=== PATIENT | female | born 1970 | race American Indian/Alaskan Native ===

== ENCOUNTER 2017-07-30 19:48 | Emergency (ER) | payer MEDICAID ==
[2017-07-30 20:26] VITALS: TEMP 97.9; O2SAT 98
--- NOTE | 2017-07-30 20:45 | C.PDOC ---
History Of Present Illness 47 year old female presents to the ED for evaluation of right lower quadrant abdominal pain which has been progressively worsening since onset 4 days ago. Patient states she had intercourse with her four days ago, after which she began experiencing discomfort to her right lower quadrant region. She notes the pain is exacerbated by moving and walking. Patient states her pain intensified today; it radiates to her back and she is unable to walk up a flight of steps without feeling pain. She denies fever, chills, nausea, vomiting , vaginal bleeding/discharge, changes in urinary/bowel habits. Patient has not taken anything for the pain and denies experiencing similar symptoms in the past. Time Seen by Provider: 07/30/17 20:00 Chief Complaint (Nursing): Abdominal Pain History Per: Patient History/Exam Limitations: no limitations Onset/Duration Of Symptoms: Days (4) Current Symptoms Are (Timing): Worse Location Of Pain/Discomfort: RLQ Radiation Of Pain To:: None Quality Of Discomfort: "Pain" Associated Symptoms: denies: Fever, Chills, Nausea, Vomiting, Diarrhea, Constipation, Urinary Symptoms Additional History Per: Patient Abnormal Vaginal Bleeding: No Last Menstral Period: 07/21/2017 Past Medical History Reviewed: Historical Data, Nursing Documentation, Vital Signs Vital Signs: Last Vital Signs Temp 97.9 F 07/30/17 20:05 Pulse 74 07/30/17 20:05 Resp 20 07/30/17 20:05 BP 175/104 H 07/30/17 20:05 Pulse Ox 98 07/30/17 23:10 - Medical History PMH: Asthma, HTN Surgical History: No Surg Hx - [facility] Procedures CERVICAL LES DESTRUC NEC (05/17/97) D & C NEC (05/17/97) MONITORING NOS (04/10/98) MANUAL ASSIST DELIV NEC (04/10/98) Family History: States: Unknown Family Hx - Social History Hx Alcohol Use: No Hx Substance Use: No - Immunization History Hx Tetanus Toxoid Vaccination: No Hx Influenza Vaccination: No Hx Pneumococcal Vaccination: No Review Of Systems Constitutional: Negative for: Fever, Chills Gastrointestinal: Positive for: Abdominal Pain (right lower quadrant ). Negative for: Nausea, Vomiting, Diarrhea, Constipation Genitourinary: Negative for: Dysuria, Hematuria, Vaginal Discharge, Vaginal Bleeding Physical Exam - Physical Exam Appears: Non-toxic, No Acute Distress, Other (hunched over when asked to stand ) Skin: Warm, Dry Head: Normacephalic Eye(s): bilateral: Normal Inspection Oral Mucosa: Moist Neck: Supple Chest: Symmetrical, No Deformity, No Tenderness Cardiovascular: Rhythm Regular, No Murmur Respiratory: No Rales, No Rhonchi, No Wheezing Gastrointestinal/Abdominal: Soft, Tenderness (to right lower quadrant ), Guarding, No Rebound Extremity: Normal ROM, Capillary Refill (less than 2 seconds ) Neurological/Psych: Oriented x3, Normal Speech, Normal Cognition ED Course And Treatment - Laboratory Results Result Diagrams: 07/30/17 20:46 07/30/17 20:46 Lab Interpretation: Normal O2 Sat by Pulse Oximetry: 98 (on RA ) Pulse Ox Interpretation: Normal - CT Scan/US US Pelvis Other Rad Studies (CT/US): Read By Radiologist, Radiology Report Reviewed CT/US Interpretation: EXAM: US Pelvis Complete, Transabdominal. CLINICAL HISTORY: 47 years old, female; Pain; Pelvic pain; Additional info: Abd pain. TECHNIQUE: Real-time transabdominal pelvic ultrasound (complete) with image documentation. COMPARISON: No relevant prior studies available. Findings: The uterus measures 10 x 5 x 6 cm and is normal. The endometrium measures 11 mm. There is a 1.3 cm small cyst/dominant follicle in the right ovary. The left ovary is normal. Flow is demonstrated to both ovaries. No free fluid. Impression: Small cyst/dominant follicle right ovary. Progress Note: Bloodwork and Pelvic US ordered and reviewed. Toradol IVP administered. Reevaluation Time: 23:11 Reassessment Condition: Improved Disposition Counseled Patient/Family Regarding: Studies Performed, Diagnosis, Need For Followup, Rx Given - Disposition Referrals: Meme Bello DO [Staff Provider] - Disposition: HOME/ ROUTINE Disposition Time: 23:11 Condition: IMPROVED Prescriptions: Naproxen [Naprosyn] 1 tab PO BID PRN #25 tab PRN Reason: Pain Instructions: Ovarian Cyst (DC) Forms: [employer] [place] [employer] (Welsh) - Clinical Impression Clinical Impression: Ovarian cyst - Scribe Statement The provider has reviewed the documentation as recorded by the Scribe (Madeline Triplett) Provider Attestation: All medical record entries made by the Scribe were at my direction and personally dictated by me. I have reviewed the chart and agree that the record accurately reflects my personal performance of the history, physical exam, medical decision making, and the department course for this patient. I have also personally directed, reviewed, and agree with the discharge instructions and disposition.
[2017-07-30 20:51] LABS: BASO # 0.1 K/uL (0.0-0.2); EOS # 0.3 K/uL (0.0-0.7); EOS % 4.9 % (0.0-4.0); HEMOGLOBIN 11.6 g/dL (11.0-16.0); LYMPH % 36.4 % (20.0-40.0); MEAN CELL VOLUME 92.4 fL (81.0-99.0); MEAN CORPUSCULAR HEMOGLOBIN 30.9 pg (27.0-31.0); MEAN CORPUSCULAR HGB CONC 33.4 g/dL (33.0-37.0); MONO # 0.5 K/uL (0.0-0.8); NEUT # 2.6 K/uL (1.8-7.0); NEUT % 47.7 % (50.0-75.0); NRBC % 0.1 % (0.0-2.0); RBC 3.75 Mil/uL (3.80-5.20); RED CELL DISTRIBUTION WIDTH 13.3 % (11.5-14.5); WHITE BLOOD COUNT 5.5 K/uL (4.8-10.8)
[2017-07-30 20:57] LABS: HCG,QUALITATIVE URINE NEGATIVE (NEGATIVE)
[2017-07-30 20:59] LABS: URINE BILIRUBIN NEGATIVE (NEGATIVE); URINE CLARITY Hazy (Clear); URINE COLOR Yellow (YELLOW); URINE GLUCOSE (UA) NORMAL (Normal)
[2017-07-30 21:00] LABS: SQUAMOUS EPITHIAL 16 /hpf (0-5); URINE BLOOD 1+ (NEGATIVE); URINE LEUKOCYTE ESTERASE TRACE Leu/uL (Negative); URINE PROTEIN NEGATIVE (NEGATIVE); URINE UROBILINOGEN NORMAL mg/dL (0.2-1.0)
[2017-07-30 21:04] LABS: ALB/GLOB RATIO 1.1 (1.0-2.1); ALBUMIN 4.1 g/dL (3.5-5.0); ALT/SGPT 23 U/L (9-52); AST/SGOT 22 U/L (14-36); BLOOD UREA NITROGEN 9 mg/dL (7-17); CALCIUM 9.1 mg/dl (8.6-10.4); GFR AFRICAN-AMERICAN > 60; GFR NON-AFRICAN AMERICAN > 60
--- NOTE | 2017-07-30 23:04 | US ---
EXAM: US Pelvis Complete, Transabdominal CLINICAL HISTORY: 47 years old, female; Pain; Pelvic pain; Additional info: Abd pain TECHNIQUE: Real-time transabdominal pelvic ultrasound (complete) with image documentation. COMPARISON: No relevant prior studies available. EXAM: US Pelvis, Transvaginal EXAM DATE/TIME: 07/30/2017 8:28 PM CLINICAL HISTORY: 47 years old, female; Pain; Pelvic pain; Additional info: Abd pain TECHNIQUE: Real-time transvaginal pelvic ultrasound (complete) with image documentation. Transvaginal imaging was used for better evaluation of the endometrium and adnexa. COMPARISON: No relevant prior studies available. FINDINGS: The uterus measures 10 x 5 x 6 cm and is normal. The endometrium measures 11 mm. The right ovary measures 3 x 2 x 2.5 cm. The left ovary measures 2 x 2 x 2 cm. There is a 1.3 cm small cyst/dominant follicle in the right ovary. The left ovary is normal. Color flow and doppler vascular waveforms were demonstrated to both ovaries. There is no significant free fluid. IMPRESSION: Small cyst/dominant follicle in the right ovary.
[2017-07-30 23:59] VITALS: BP 116/78; PULSE 88; RESP 18
== END 2017-07-30 22:55 | disposition home or self-care (01) ==
LOC: C.ER 19:48
DX: N83.201 Unspecified ovarian cyst, right side (principal)

== ENCOUNTER 2017-12-24 11:47 | Emergency (ER) | payer MEDICAID ==
[2017-12-24 12:01] VITALS: O2SAT 100
[2017-12-24 13:01] LABS: BASO # 0.1 K/uL (0.0-0.2); EOS # 0.2 K/uL (0.0-0.7); EOS % 4.5 % (0.0-4.0); HEMOGLOBIN 12.3 g/dL (11.0-16.0); LYMPH # 1.3 K/uL (1.0-4.3); LYMPH % 24.8 % (20.0-40.0); MEAN CORPUSCULAR HEMOGLOBIN 29.8 pg (27.0-31.0); MEAN CORPUSCULAR HGB CONC 33.1 g/dL (33.0-37.0); MEAN PLATELET VOLUME 11.2 fL (7.2-11.7); MONO # 0.4 K/uL (0.0-0.8); NEUT # 3.2 K/uL (1.8-7.0); NEUT % 61.7 % (50.0-75.0); NRBC % 0.1 % (0.0-2.0); RBC 4.11 Mil/uL (3.80-5.20); RED CELL DISTRIBUTION WIDTH 13.7 % (11.5-14.5); WHITE BLOOD COUNT 5.2 K/uL (4.8-10.8)
[2017-12-24 13:06] LABS: ALB/GLOB RATIO 1.3 (1.0-2.1); ALBUMIN 4.2 g/dL (3.5-5.0); ALT/SGPT 22 U/L (9-52); AST/SGOT 24 U/L (14-36); BLOOD UREA NITROGEN 8 mg/dL (7-17); CALCIUM 8.8 mg/dl (8.6-10.4); GFR NON-AFRICAN AMERICAN > 60
[2017-12-24 13:07] LABS: MEAN CELL VOLUME 90.1 fL (81.0-99.0)
--- NOTE | 2017-12-24 13:12 | RAD ---
HISTORY: chest pain COMPARISON: None available. TECHNIQUE: Chest, one view. FINDINGS: LUNGS: No focal consolidation. Tiny probable calcified granulomas. Please note that chest x-ray has limited sensitivity for the detection of pulmonary masses. PLEURA: No significant pleural effusion identified. No definite pneumothorax . CARDIOVASCULAR: The cardiomediastinal silhouette appears within normal limits of size. OSSEOUS STRUCTURES: No acute osseous abnormality identified. VISUALIZED UPPER ABDOMEN: Unremarkable. OTHER FINDINGS: None. IMPRESSION: No focal consolidation, significant pleural effusion, or definite pneumothorax identified. Tiny probable calcified granulomas.
[2017-12-24 14:04] VITALS: BP 159/80; PULSE 62; RESP 16; TEMP 98.2
--- NOTE | 2017-12-24 16:29 | C.PDOC ---
History Of Present Illness 47-year-old female, PMHx includes Asthma and Hypertension (compliant with meds), comes in complaining of sharp chest pain ongoing for the past 4 days. Pain is worse with movement. Patient denies any shortness of breath, fever, chills, cough, or any other associated symptoms. No other complaints at this time Chief Complaint (Nursing): Chest Pain History Per: Patient History/Exam Limitations: no limitations Past Medical History Reviewed: Historical Data, Nursing Documentation, Vital Signs Vital Signs: Last Vital Signs Temp 98.2 F 12/24/17 14:02 Pulse 62 12/24/17 14:02 Resp 16 12/24/17 14:02 BP 159/80 H 12/24/17 14:02 Pulse Ox 100 12/24/17 14:02 - Medical History PMH: Asthma, HTN - [facility] Procedures CERVICAL LES DESTRUC NEC (05/17/97) D & C NEC (05/17/97) MONITORING NOS (04/10/98) MANUAL ASSIST DELIV NEC (04/10/98) Family History: States: No Known Family Hx - Social History Hx Alcohol Use: No Hx Substance Use: No - Immunization History Hx Tetanus Toxoid Vaccination: No Hx Influenza Vaccination: No Hx Pneumococcal Vaccination: No Review Of Systems Constitutional: Negative for: Fever Cardiovascular: Positive for: Chest Pain Gastrointestinal: Negative for: Nausea, Vomiting Skin: Negative for: Rash Neurological: Negative for: Weakness, Numbness Physical Exam - Physical Exam Appears: Non-toxic, No Acute Distress Skin: Warm, Dry, No Rash Head: Atraumatic, Normacephalic Eye(s): bilateral: Normal Inspection Nose: Normal Oral Mucosa: Moist Lips: Normal Appearing Neck: Normal ROM Chest: Symmetrical Cardiovascular: Rhythm Regular, No Murmur Respiratory: Normal Breath Sounds, No Accessory Muscle Use Extremity: Normal ROM, No Deformity Neurological/Psych: Oriented x3, Normal Speech ED Course And Treatment - Laboratory Results Result Diagrams: 12/24/17 12:51 12/24/17 12:51 ECG: Interpreted By Me, Viewed By Me ECG Rhythm: Sinus Rhythm ECG Interpretation: No Acute Changes Rate From EC O2 Sat by Pulse Oximetry: 100 Pulse Ox Interpretation: Normal (RA) Disposition - Disposition Referrals: Yanni Grewal, [Non-Staff] - Disposition: HOME/ ROUTINE Disposition Time: 13:40 Condition: GOOD Additional Instructions: JOSS BUSCH, thank you for letting us take care of you today. The emergency medical care you received today was directed at your acute symptoms. If you were prescribed any medication, please fill it and take as directed. It may take several days for your symptoms to resolve. Return to the Emergency Department if your symptoms worsen, do not improve, or if you have any other problems. Please contact your doctor or call one of the physicians/clinics you have been referred to that are listed on the Patient Visit Information form that is incl uded in your discharge packet. Bring any paperwork you were given at discharge with you along with any medications you are taking to your follow up visit. Our treatment cannot replace ongoing medical care by a primary care provider outside of the emergency department. Thank you for allowing the [facility] team to be part of your care today. Follow up with your primary care doctor in 2-3 days for re-evaluation and further management. Prescriptions: Ibuprofen [Motrin] 600 mg PO Q6 PRN #20 tab PRN Reason: Pain, Moderate (4-7) Instructions: Muscle and Bone Pain (DC) Forms: [employer] (Kazakh) - Clinical Impression Clinical Impression: Non-cardiac chest pain - Scribe Statement The provider has reviewed the documentation as recorded by the Scribe (Eris Paredes) Provider Attestation: All medical record entries made by the Scribe were at my direction and personally dictated by me. I have reviewed the chart and agree that the record accurately reflects my personal performance of the history, physical exam, medical decision making, and the department course for this patient. I have also personally directed, reviewed, and agree with the discharge instructions and disposition.
--- NOTE | 2017-12-26 14:56 | CARD ---
APPROVED REPORT Date of service: 12/24/2017 EKG Measurement Heart [id number] <Conclusion> Normal sinus rhythm with sinus arrhythmia Normal ECG
== END 2017-12-24 14:12 | disposition home or self-care (01) ==
LOC: C.ER 11:47
DX: R07.89 Other chest pain (principal); I10 Essential (primary) hypertension

== ENCOUNTER 2018-07-17 11:58 | Emergency (ER) | payer MEDICAID | END 2018-07-17 13:56 | disposition home or self-care (01) | LOC: C.ER 11:58 ==